=== PATIENT | male | born 1995 | race African-American/Black ===

== ENCOUNTER 2020-06-08 15:16 | Emergency (ER) | payer BC, OTHER ==
[~2020-06-08] VITALS: Ht 185.4 cm; Wt 63.5 kg
[2020-06-08 15:22] VITALS: BP 124/73
== END 2020-06-08 16:31 | disposition home or self-care (01) ==
LOC: ER 15:16
DX: S63.602A Unspecified sprain of left thumb, initial encounter (principal); X58.XXXA Exposure to other specified factors, initial encounter; Y93.67 Activity, basketball; Y92.89 Other specified places as the place of occurrence of the external cause; Y99.8 Other external cause status
CPT/HCPCS: 73140